=== PATIENT | female | born 1985 | race American Indian/Alaskan Native ===

== ENCOUNTER 2022-02-18 10:20 | Emergency (ER) | payer OTHER ==
[2022-02-18 10:24] VITALS: BP 154/90
[2022-02-18] MEDS ORDERED: ASPIRIN 325 MG TAB PO ONE (10:38)
--- NOTE | 2022-02-18 11:05 | XRay Report ---
CHEST 2 VIEWS INDICATION / CLINICAL INFORMATION: chest pain. FINDINGS: SUPPORT DEVICES: None. HEART / MEDIASTINUM: No significant abnormality. LUNGS / PLEURA: No significant pulmonary or pleural abnormality. No pneumothorax. ADDITIONAL FINDINGS: No significant additional findings. IMPRESSION: 1. No acute findings. Signer Name: Oniel Knox MD Signed: 02/18/2022 11:01 AM Workstation Name: [id number]
[2022-02-18 11:33] LABS: Basophils # (Auto) 0.1 K/mm3 (0.0-0.1); Basophils % (Auto) 1.1 % (0.0-1.8); Eosinophils % (Auto) 0.5 % (0.0-4.3); Hematocrit 42.6 % (30.3-42.9); Hemoglobin 14.3 gm/dl (10.1-14.3); Lymphocytes # (Auto) 2.4 K/mm3 (1.2-5.4); Mean Corpuscular HGB Conc 34 % (30-34); Mean Corpuscular Volume 89 fl (79-97); Monocytes # (Auto) 0.5 K/mm3 (0.0-0.8); Monocytes % (Auto) 6.8 % (0.0-7.3); Platelet Count 213 K/mm3 (140-440); Red Blood Count 4.81 M/mm3 (3.65-5.03); Red Cell Distribution Width 14.4 % (13.2-15.2)
[2022-02-18 11:59] LABS: Alanine Aminotransferase 31 units/L (7-56); Albumin 5.1 g/dL (3.9-5); BUN/Creatinine Ratio 11; Blood Urea Nitrogen 9 mg/dL (7-17); Calcium 10.1 mg/dL (8.4-10.2); Hemolysis Index 146
--- NOTE | 2022-02-19 10:47 | Electrocardiograph Report ---
[facility] Test Date: 2022-02-18 Test Time: 10:26:29 Pat Name: SWAPNA ANDERSEN Department: Room: Gender: F [employer] Insoles: LORRAINE : 1985 Requested By: ED DOC Order Number: [id number] Reading MD: Abbie Schmidt Measurements Intervals [place] Rate: 70 P: 67 ND: 171 QRS: 78 QRSD: 74 T: 55 QT: 391 QTc: 424 Interpretive Statements Sinus rhythm No previous ECG available for comparison Electronically Signed On 02-19-2022 10:46:49 EDT by Abbie Schmidt
== END 2022-02-18 19:22 | disposition left against medical advice (07) ==
LOC: ED 10:20
DX: R07.9 Chest pain, unspecified (principal); Z53.21 Procedure and treatment not carried out due to patient leaving prior to being seen by health care provider
CPT/HCPCS: 36415; 71046; 80053; 84484; 85025; 93005